=== PATIENT | male | born 1950 | race Caucasian/White ===

== ENCOUNTER 2017-09-05 21:16 | Emergency (ER) | payer OTHER ==
[~2017-09-05] VITALS: Ht 188 cm; Wt 112.5 kg
[~2017-09-05 21:16] MED LIST: ALEVE220 MG PO; AMIODARONE HCL200 MG PO; ASPIRIN81 M2 PO; ATIVAN0.5 MG PO; CARDIZEM CD,CA240 MG PO; DIGITEK125 MC2 PO; DIGOXIN125 MCG PO; ELIQUIS5 MG PO; FENOFIBRATE160 M1 PO; FLECAINIDE ACE100 MG PO; FLECAINIDE ACET50 MG PO; FLOMAX0.4 MG PO; LASIX40 MG PO; LOPRESSOR50 MG PO; LOVAZA1 GM PO; METAMUCIL POWD798 GM PO; NEXIUM40 MG PO; PAROXETINE HC37.5 MG PO; PERCOCET 5/31 TABLET PO; VITAMIN D31000 UNI2 PO; ZOFRAN ODT8 MG PO
[2017-09-05 23:58] VITALS: BP 154/82
== END 2017-09-05 23:59 | disposition home or self-care (01) ==
LOC: EME 21:16
DX: T18.9XXA Foreign body of alimentary tract, part unspecified, initial encounter (principal); X58.XXXA Exposure to other specified factors, initial encounter; K20.9 Esophagitis, unspecified; I10 Essential (primary) hypertension; Z79.01 Long term (current) use of anticoagulants; Z87.891 Personal history of nicotine dependence
CPT/HCPCS: 70360; 99281; 99284